=== PATIENT | male | born 2005 | race Caucasian/White ===

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

== ENCOUNTER → 2023-09-10 | Outpatient (CLI) | payer OTHER ==
--- NOTE | 2023-09-10 18:06 | XR ---
EXAMINATION TYPE: XR finger LT DATE OF EXAM: 09/10/2023 COMPARISON: None HISTORY: Finger caught in machine pain distal tip TECHNIQUE: Three-view left finger FINDINGS: No acute osseous abnormality is evident. Mild soft tissue swelling may be present distal ri ng finger. Joint spaces are preserved. Follow up exams can be performed 7-10 days from acute trauma for continue d pain. IMPRESSION: 1. No acute osseous abnormality. 2. Mild soft tissue swelling distal left ring finger
== END | disposition home or self-care (01) ==
LOC: RADXRMAIN 16:33
PROVIDERS: ATTEND Emergency Medicine
DX: S67.10XD Crushing injury of unspecified finger(s), subsequent encounter (principal); M79.89 Other specified soft tissue disorders

== ENCOUNTER 2024-01-31 03:30 | Emergency (ER) | payer BC, OTHER ==
[2024-01-31 03:53] VITALS: BP 145/84; PULSE 109; RESP 18; TEMP 98.1
--- NOTE | 2024-01-31 04:49 | ED ---
General Adult HPI - General Chief complaint: Fall Stated complaint: Fall- rt side and wrist pain Time Seen by Provider: 01/31/24 03:38 Source: patient Mode of arrival: ambulatory Limitations: no limitations - History of Present Illness Initial comments: Dictation was produced using [employer] dictation software. please excuse any grammatical, word or spelling errors. Chief Complaint: 18-year-old male presents with right wrist pain History of Present Illness: Patient 18-year-old male he fell on outstretched hand at work. Patient tried to catch his fall with his right hand. He complains of right wrist pain. States that the pain is along his whole wrist even at the base of the thumb. The ROS documented in this emergency department record has been reviewed and confirmed by me. Those systems with pertinent positive or negative responses have been documented in the HPI. All other systems are other negative and/or noncontributory. - Related Data Previous Rx's Medication Instructions Recorded Acetaminophen Tab [Tylenol Tab] 500 mg PO Q6H PRN #24 tablet 07/30/22 Ibuprofen [Motrin] 600 mg PO Q8HR PRN #30 tab 07/30/22 Allergies Allergy/AdvReac Type Severity Reaction Status Date / Time No Known Allergies Allergy Verified 01/31/24 03:33 Review of Systems ROS Statement: Those systems with pertinent positive or pertinent negative responses have been documented in the HPI. ROS Other: All systems not noted in ROS Statement are negative. Past Medical History Past Medical History: No Reported History History of Any Multi-Drug Resistant Organisms: None Reported Past Surgical History: Adenoidectomy, Ear Surgery, Tonsillectomy Additional Past Surgical History / Comment(s): TNA Past Psychological History: ADD/ADHD Smoking Status: Never smoker Past Alcohol Use History: None Reported Past Drug Use History: None Reported General Exam - General Exam Comments Initial Comments: General: Well-appearing, nontoxic, no acute distress. Head: Normocephalic, atraumatic Eyes: PERRLA, EOMI ENT: Airway patent Chest: Nonlabored breathing Skin: No visual rash, normal skin tone Neuro: Alert and oriented 3 Musculoskeletal: No gross abnormalities Right wrist: No gross deformity, pain over the p scaphoid tubercle and anatomic snuffbox, no gross deformity Limitations: no limitations Course Vital Signs 01/31/24 03:33 Temperature 98.1 F Pulse Rate 109 H Respiratory 18 Rate Blood Pressure 145/84 O2 Sat by Pulse 95 Oximetry Medical Decision Making - Medical Decision Making Was pt. sent in by a medical professional or institution ([facility], [employer], urgent care, hospital, or shelter...) When possible be specific @ -No Did you speak to anyone other than the patient for history (EMS, parent, family, police, friend...)? What history was obtained from this source @ -No Did you review nursing and triage notes (agree or disagree)? Why? @ -I reviewed and agree with nursing and triage notes Were old charts reviewed (outside hosp., previous admission, EMS record, old EKG, old radiological studies, urgent care reports/EKG's, shelter records)? Report findings @ -No old charts were reviewed Differential Diagnosis (chest pain, altered mental status, abdominal pain women, abdominal pain men, vaginal bleeding, musculoskeletal, weakness, fever, dyspnea, syncope, headache, dizziness, GI bleed, back pain, seizure, CVA, palpatations, mental health)? @ -Not applicable EKG interpreted by me (3pts min.). @ -None done X-rays interpreted by me (1pt min.). @ -Right wrist x-ray shows no acute processes CT interpreted by me (1pt min.). @ -None done U/S interpreted by me (1pt. min.). @ -None done What testing was considered but not performed or refused? (CT, X-rays, U/S, labs)? Why? @ -None What meds were considered but not given or refused? Why? @ -None Did you discuss the management of the patient with other professionals (professionals i.e. [facility], [employer]ER, lab, RT, psych nurse, social insurance administrator, server, teacher, customs patrol officer, assistant case manager)? Give summary @ -No Was smoking cessation discussed for >3mins.? @ -No Was critical care preformed (if so, how long)? @ -No Were there social determinants of health that impacted care today? How? (Homelessness, low income, unemployed, alcoholism, drug addiction, transportation, low edu. Level, literacy, decrease access to med. care, longterm, rehab)? @ -No Was there de-escalation of care discussed even if they declined (Discuss DNR or withdrawal of care, Hospice)? DNR status @ -No What co-morbidities impacted this encounter? (DM, HTN, Smoking, COPD, CAD, Cancer, CVA, ARF, Chemo, Hep., AIDS, mental health diagnosis, sleep apnea, morbid obesity)? @ -None Was patient admitted / discharged? Hospital course, mention meds given and route, prescriptions, significant lab abnormalities, going to OR and other pertinent info. @ -18-year-old male presents with right wrist pain after fall on outstretched hand. Vital signs stable. Patient does have clinical exam findings to suggest scaphoid fracture. X-rays unremarkable. Patient still placed in a thumb spica splint given outpatient referral to hand s specialist. He is also told that he can follow-up with his primary care doctor regarding this. Undiagnosed new problem with uncertain prognosis? @ -No Drug Therapy requiring intensive monitoring for toxicity (Heparin, Nitro, Insulin, Cardizem)? @ -No Were any procedures done? @ -No Diagnosis/symptom? Acute, or Chronic, or Acute on Chronic? Uncomplicated (without systemic symptoms) or Complicated (systemic symptoms)? @ -Wrist pain Side effects of treatment? @ -No Exacerbation, Progression, or Severe Exacerbation? @ -No Poses a threat to life or bodily function? How? (Chest pain, [place], [place], pneumonia, PE, COPD, DKA, ARF, appy, cholecystitis, CVA, Diverticulitis, Homicidal, Suicidal, threat to staff... and all critical care pts) @ -yes Disposition Clinical Impression: Wrist pain Disposition: HOME SELF-CARE Condition: Good Instructions (If sedation given, give patient instructions): Wrist Injury (ED) Additional Instructions: No weightbearing to right upper extremity until cleared by physician Is patient prescribed a controlled substance at d/c from ED?: No Referrals: Susi Abdalla DO [Doctor of Osteopathic Medicine] - 1-2 days Time of Disposition: 06:26
--- NOTE | 2024-01-31 05:48 | XR ---
EXAMINATION TYPE: XR wrist complete RT DATE OF EXAM: 01/31/2024 CLINICAL HISTORY: FOOSH with pain TECHNIQUE: Frontal, lateral and oblique images of the right wrist are obtained. COMPARISON: None FINDINGS: There is no acute fracture/dislocation evident in the right wrist. The joint spaces in th e right wrist appear within normal limits. The overlying soft tissue appears unremarkable. IMPRESSION: There is no acute fracture or dislocation in the right wrist.
== END 2024-01-31 06:35 | disposition home or self-care (01) ==
LOC: EC 03:30
DX: M25.531 Pain in right wrist (principal); Z86.59 Personal history of other mental and behavioral disorders; W18.39XA Other fall on same level, initial encounter; Y99.0 Civilian activity done for income or pay
CPT/HCPCS: 99283

== ENCOUNTER → 2024-02-07 | Outpatient (CLI) | payer OTHER ==
--- NOTE | 2024-02-25 14:05 | MR ---
EXAMINATION TYPE: MR hand RT wo con DATE OF EXAM: 02/07/2024 COMPARISON: Radiograph 02/03/2024 HISTORY: 18-year-old male S63.601A UNSPECIFIED SPRAIN OF RIGHT THUMB, INITIAL. Right thumb pain, swe lling, and limited movement due to work injury TECHNIQUE: Multiplanar, multisequence images of the right hand were obtained without IV contrast. FINDINGS: 3 mm corticated loose body along the dorsal aspect of the first MCP joint. There may be slight palmar subluxation at the MCP joint and mild degenerative spurring and mild joint space narrowing. Large fi eld-of-view limited for detailed assessment there seems to be some deficiency of capsular insertion a long the dorsal and dorsoradial aspect of the first proximal phalangeal base, refer to coronal series 601 images 6 through 9. Also, axial series 701 images 46 and 47. No acute or healing fracture seen. No suspicious bone marrow replacement. The dorsal extensor and volar flexor tendons otherwise appear intact. IMPRESSION: 1. Findings suspected to represent old capsular sprain/tear along the dorsal and dorsoradial aspect o f the first MCP joint, especially at the proximal phalangeal base insertion. There is a 3 mm loose al dy here. 2. Associated mild posttraumatic OA. There may also be slight palmar subluxation here at the joint.
== END | disposition home or self-care (01) ==
LOC: RADMRIMAIN 14:06
PROVIDERS: ATTEND Orthopaedic Surgery Hand Surgery
DX: M19.141 Post-traumatic osteoarthritis, right hand (principal); M24.031 Loose body in right wrist; S63.601A Unspecified sprain of right thumb, initial encounter; X58.XXXA Exposure to other specified factors, initial encounter

== ENCOUNTER 2024-02-28 09:55 | Day surgery (SDC) | payer OTHER ==
--- NOTE | 2024-02-25 13:02 | P.HPOR ---
History of Present Illness H&P Date: 02/25/24 Subjective: This is a 18 year old male that presents today for follow up evaluation regarding a right thumb injury that occurred on 01/31/2024 when he was at work at [employer] and slipped on water and tried to break his fall with his hand and jammed his thumb.He had immediate pain, swelling and deformity. He was seen in the emergency department where x-rays were taken and he was placed in a splint. He has persistent pain and bruising along the thumb with what appears to be a v isual deformity. He denies any prior injury to this thumb in the past. Physical Examination: RUE: AIN/PIN/Radial/Ulnar/Median motor intact. Radial/Ulnar/Median SILT. 2+/4 Radial/Ulnar pulses palpated. 5/5 APB, 5/5 FDI. Bruising/swelling present around thumb CMC joint with maximum TTP over UCL origin at metacarpal head. Exam limited due to pain. Imaging: X-Rays of the right hand 3V reviewed from ED visit on 02/03/24 demonstrates no acute fracture, slight volar subluxation of the the proximal phalanx in relationship to thumb metacarpal. MRI of the right hand 3V on 02/07/24 demonstrates tear of the thumb UCL ligament at the MP joint off of it's proximal phalanx insertion. Volar subluxation of the thumb MP joint is present. Impression: 1.) Right thumb UCL tear Plan: Diagnosis and treatment options were discussed with the patient. We discussed findings of UCL tear and due to his age and activity demand I recommend surgical intervention. We discussed he has volar subluxation of the joint due to the instability and this resource engineer can lead to arthritis if left unaddressed. He is scheduled for a right thumb UCL ligament repair with internal brace. Risks and benefits of surgery including bleeding, infection, damage to surrounding tissue, need for further surgery, residual numbness were discussed and the patient wished to go forward with surgery. I anticipate 6 weeks of left handed work only post operatively and he may return to work 1 week after surgery with left handed work only. The patient was agreeable with this plan. -Jun Forde DO Orthopedic Hand/Upper Extremity Surgeon Past Medical History Past Medical History: Asthma Additional Past Medical History / Comment(s): work injury to rt thumb History of Any Multi-Drug Resistant Organisms: None Reported Past Surgical History: Adenoidectomy, Ear Surgery, Tonsillectomy Additional Past Surgical History / Comment(s): wisdom teeth Past Anesthesia/Blood Transfusion Reactions: No Reported Reaction Smoking Status: Never smoker - Past Family History Mother Family Medical History: No Reported History Medications and Allergies Home Medications Medication Instructions Recorded Confirmed Type No Known Home Medications 02/25/24 02/25/24 History Allergies Allergy/AdvReac Type Severity Reaction Status Date / Time No Known Allergies Allergy Verified 02/25/24 11:26 Physical Examination Osteopathic Statement: *. No significant issues noted on an osteopathic structural exam other than those noted in the History and Physical/Consult.
[~2024-02-28 09:55] MED LIST: HYDROmorphone 0.5 MG/0.5 ML SYRINGE IVP PRN; MIDAZOLAM 2 MG/2 ML VIAL IV PRN; SCOPOLAMINE 1 MG/72 HR PATCH TRANSDERM ONE
[2024-02-28] MEDS: LACTATED RINGERS 1,000 ML IV SCH (10:04)
[2024-02-28] MEDS: DEXAMETHASONE SOD PHOSPHATE 4 MG/ML 1 ML VIAL IV ONE (10:21)
[2024-02-28] MEDS: ONDANSETRON 4 MG/2 ML VIAL IVP ONE (10:21)
[2024-02-28 10:22] VITALS: TEMP 97.5
[2024-02-28] MEDS: MIDAZOLAM 2 MG/2 ML VIAL IVP ONE (10:44)
--- NOTE | 2024-02-28 11:01 | P.ANPRN ---
Procedure Note - Anesthesia - Nerve Block Performed Right Axillary Single Time Out Performed: Yes Date of Procedure: 02/28/24 Procedure Start Time: 10:45 Procedure Stop Time: 10:50 Location of Patient: PreOp Indication: Acute Post-Operative Pain, Dx/Pain Location, Requested by Surgeon Sedation Type: Sedate with meaningful contact maintained Preparation: Sterile Prep Position: Supine Catheter: None Needle Types: Pajunk Needle Gauge: 21 Ultrasound used to visualize needle placement: Yes Ultrasound used to observe medication spread: Yes Injectate: 0.5% Ropivacaine (see comment for volume) (25ml with 4mg dexamethasone) Blood Aspirated: No Pain Paresthesia on Injection Noted: No Resistance on Injection: Normal Image Stored and Saved: Yes Events: Uneventful and Well Tolerated
[2024-02-28] MEDS ORDERED: DEXAMETHASONE SOD PHOSPHATE 4 MG/ML 1 ML VIAL ONE (11:35)
[2024-02-28] MEDS ORDERED: KETAMINE HCL IN 0.9 % NACL 50 MG/5 ML SYRINGE ONE (11:35)
[2024-02-28] MEDS ORDERED: ROPIVACAINE 5 MG/ML 30 ML VIAL ONE (11:35)
[2024-02-28] MEDS ORDERED: GLYCOPYRROLATE 0.2 MG/ML 2 ML VIAL ONE (11:35)
[2024-02-28] MEDS ORDERED: LIDOCAINE 1% INJ 10MG/ML (20 ML MDV) ONE (11:35)
[2024-02-28] MEDS ORDERED: PROPOFOL 10 MG/ML 20 ML VIAL IV ONE (11:35)
[2024-02-28] MEDS ORDERED: MIDAZOLAM 2 MG/2 ML VIAL ONE (11:35)
[2024-02-28] MEDS: ceFAZolin 3 GM in SODIUM CHLORIDE 0.9% 100 ML IVPB PRN (11:40)
--- NOTE | 2024-02-28 13:26 | P.OP ---
Date of Procedure: 02/28/24 Preoperative Diagnosis: Right thumb ulnar collateral ligament tear Postoperative Diagnosis: Right thumb ulnar collateral ligament tear Procedure(s) Performed: Right thumb ulnar collateral ligament tear repair with internal brace augmentation Implants: Arthrex Swivel Lock Suture anchor 3.5mmx2 Anesthesia: regional Surgeon: Jun Forde [employer] Crewmember #1: Kendall Cam Estimated Blood Loss (ml): 0 Pathology: none sent Condition: stable Disposition: PACU Description of Procedure: This is a 18 year old male who sustained a injury to his right thumb MP joint and presents today for surgical intervention. Risks and benefits of surgery were discussed with the patient including bleeding, damage to surrounding tissue, infection, need for further surgery as well as risks of anesthesia including pulmonary embolism and even and the patient wished to proceed with surgical intervention. The patient was seen in the pre-operative area by myself. Consent and H&P were completed and updated. The correct extremity was marked in the pre-operative area by myself and all other questions were answered. Operative Narrative: The patient was brought to the operating room by the department of anesthesia. They remained on the portable stretcher and a rolling hand table was brought to the side of the operative extremity. Pre-operative time out was performed indicating the correct patient, procedure and laterality. All in the room agreed. Pre-operative antibiotics were given prior to skin incision. The patient was then drifted off to sleep by the department of anesthesia. A nonsterile tourniquet was then applied to the operative extremity and the right upper extremity was then prepped and draped in normal sterile fashion. The operative extremity was the exsanguinated with an esmarch bandage and the tourniquet was inflated to 250mmHg. Incision was made with a 15 blade scalpel along the ulnar border of the thumb MP joint. Dissection was done taken down through subcutaneous tissues and branches of the superficial radial nerve were identified and protected. The adductor aponeurosis was identified and the interval between the adductor aponeurosis and the dorsal extensor toney was longitudinally incised and elevated to reveal the capsule and the ulnar collateral ligament. The MP joint was then stressed in a radial direction to stress the thumb MP UCL and there was obvious gapping due to laxity of the UCL ligament that was shortened and scarred down off it's proximal phalanx base insertion. Scar tissue at the distal end of the tear was excised and the UCL ligament was then mobilized and the length of the ligament was able to restored. The laser line guidewire was then inserted on the volar aspect of the base of the proximal phalanx. This was overdrilled. A 3.5 mm Arthrex swi romero lock suture anchor with fiber tape and 4-0 FiberWire was then successfully advanced into the drill hole. The 4-0 FiberWire suture end was then passed through the distal portion of the ulnar collateral ligament and a free needle was used to make another pass through the ligament and this was repaired down to its bony insertion in a horizontal mattress fashion. Attention was then drawn to the metacarpal head region. Laser line guidewire was inserted and overdrilled. The thumb was then held in approximately 25-30 of MP flexion and the suture tape was then inserted with a fork tip 3.5 mm swivel lock anchor into the metacarpal carpal head at the origin of the UCL ligament to augment the repair. Suture ends were cut. The thumb MP joint was then stressed, both radially and ulnarly and firm endpoints were appreciated with radial stress under fluoroscopy. The collateral ligament repair was then reenforced with 4-0 Monocryl suture to the surrounding capsule. Capsular and adductor aponeurosis closure was performed with 4-0 monocryl suture, steri strips were applied. A thumb spica plaster splint was then applied, tourniquet was let down and the hand had immediate perfusion. The patient was then woken by the department of anesthesia and transferred to PACU in stable condition. Kendall ZHAO was present to assist in retraction, manipulation of the thumb and tensioning of the repair. Jun Forde D.O. Orthopedic Hand/Upper Extremity Surgeon
[2024-02-28 13:29] VITALS: RESP 18
[2024-02-28 14:06] VITALS: BP 130/60; PULSE 95
== END 2024-02-28 14:09 | disposition home or self-care (01) ==
LOC: OR 09:55
PROVIDERS: ATTEND Orthopaedic Surgery Hand Surgery
DX: S53.31XA Traumatic rupture of right ulnar collateral ligament, initial encounter (principal); G89.18 Other acute postprocedural pain; J45.909 Unspecified asthma, uncomplicated; W18.49XA Other slipping, tripping and stumbling without falling, initial encounter; Y99.0 Civilian activity done for income or pay
CPT/HCPCS: 64415; 26540; C1713; J2250; J1100; J0690; J2405; J2001; J2795; J2704